=== PATIENT | female | born 1970 | race Two or more races ===

== ENCOUNTER 2018-08-01 10:17 | Inpatient (IN) | payer OTHER ==
[2018-08-01 10:49] VITALS: BMI 34.4
--- NOTE | 2018-08-01 11:50 | HP ---
CIWA Score Nausea/Vomitin-Mild Nausea/No Vomiting Muscle Tremors: 2 Anxiety: 5 Agitation: 4-Moderately Restless Paroxysmal Sweats: 2 Orientation: 0-Oriented Tacttile Disturbances: 2-Mild Itch/Numbness/Burn Auditory Disturbances: 2-Mild Harshness/Frighten Visual Disturbances: 2-Mild Sensitivity Headache: 2-Mild CIWA-Ar Total Score: 22 - Admission Criteria OASAS Guidelines: Admission for Medically Managed Detox: Requires at least one of the followin. CIWA greater than 12 2. Seizures within the past 24 hours 3. Delirium tremens within the past 24 hours 4. Hallucinations within the past 24 hours 5. Acute intervention needed for co occurring medical disorder 6. Acute intervention needed for co occurring psychiatric disorder 7. Severe withdrawal that cannot be handled at a lower level of care (continued vomiting, continued diarrhea, abnormal vital signs) requiring intravenous medication and/or fluids 8. Admission ROS S - HPI Allergies/Adverse Reactions: Allergies Allergy/AdvReac Type Severity Reaction Status Date / Time morphine Allergy Severe Difficulty Verified 08/01/18 13:25 Breathing acetaminophen [From Tylenol] Allergy Verified 08/01/18 13:25 History of Present Illness: pt here requesting detox from etoh use , reports 12 beers/day x 1 year , referred by therapist to this facility , latest use 2 days ago , current symptoms as above . PMHX : hypotension PSHX : appy , gastric bypass 2014 lmp 1 mo ago upt psych : bipolar d/o , sad on meds sHx : lives w/2 daughters ages 14 & 8 , currently w/ maternal gm Exam Limitations: Clinical Condition - Ebola screening Have you traveled outside of the country in the last 21 days: No (N) Have you had contact with anyone from an Ebola affected area: No Do you have a fever: No - Review of Systems Constitutional: See HPI EENT: reports: Other (glasses) Respiratory: reports: No Symptoms reported Cardiac: reports: No Symptoms Reported GI: reports: See HPI, Nausea, Abdominal cramping : reports: No Symptoms Reported Musculoskeletal: reports: Other (pt reports 1 month painful swelling left UE , sudden onset , denies h/o trauma , states has been using ice to decrease swelling which is considerably less and recurs intermittently every few days , reports pain 10/10 and unable to sleep or lie on affected side 2/2 pain .) Integumentary: reports: No Symptoms Reported Neuro: reports: See HPI, Headache, Tremors Endocrine: reports: No Symptoms Reported Psychiatric: reports: Orientated x3, Agitated (reports claustrophobia), Anxious , Depressed Patient History - Smoking Cessation Smoking history: Smoker current status UNK - Substances abused Alcohol Substance route: Oral Frequency: Daily Amount used: 6 cans of beer-12 ounces Age of first use: 46 Date of last use: 07/30/18 Family Disease History - Family Disease History Family Disease History: Diabetes: Grandparent, Father, Mother, Brother, Other: Son (25 , A & W ), Daughter (A & W x 3 ) Admission Physical Exam S - Vital Signs Vital Signs: Vital Signs - 24 hr 08/01/18 10:22 Temperature 98.9 F Pulse Rate 75 Respiratory 16 Rate Blood Pressure 121/72 - Physical General Appearance: Yes: Moderate Distress, Tremorous, Irritable, Sweating, Anxious HEENTM: Yes: EOMI, Hearing grossly Normal, Normocephalic Respiratory: Yes: Chest Non-Tender, Lungs Clear, Normal Breath Sounds Neck: Yes: No masses,lesions,Nodules, Trachea in good position Cardiology: Yes: Regular Rhythm, Regular Rate, S1, S2 Abdominal: Yes: Non Tender, Soft, Protuberent Extremities: Yes: Normal Range of Motion, Non-Tender, Other Neurological: Yes: Fully Oriented, Alert, Motor Strength 5/5 Integumentary: Yes: Warm, Jaundice (Left UE full PROM , + tenderness w/ deep palpation , no deformity , mild edema around distal humerus and proximal forearm , no ecchymosis) - Addiitonal Findings: report to Dr Neal @ [facility] ED , pt sent for further evaluation and tx - Diagnostic (1) Alcohol abuse Current Visit: Yes Status: Acute Screened but not Admitted - Documentation of Visit Level of Care Recommended at this Time: ER Evaluation/Care (reports to Dr Neal ) Breathalyzer - Breathalyzer Breathalyzer: 0 Urine Drug Screen - Test Device Lot number: [id number] Expiration date: 04/24/20 - Control Is test valid?: Yes - Results Drug screen NEGATIVE: Yes Inpatient Rehab Admission - Rehab Decision to Admit Inpatient rehab admission?: No
[2018-08-01] MEDS ORDERED: BISMUTH SUBSALICYLATE 524 MG/30 ML UD PO PRN (20:17)
[2018-08-01] MEDS ORDERED: MENTHOL/PHENOL 1 EACH UD MM PRN (20:17)
[2018-08-01] MEDS ORDERED: MAGNESIUM HYDROX 2400MG/30ML ORAL SUSPENSION 30 ML CUP PO PRN (20:17)
[2018-08-01] MEDS ORDERED: MAG HYDROX/AL HYDROX/SIMETH 30 ML UNIT-DOSE CUP PO PRN (20:17)
[2018-08-01] MEDS ORDERED: chlordiazePOXIDE HCL 25 MG CAPSULE PO ONE (20:17)
[2018-08-01] MEDS ORDERED: METHOCARBAMOL 500 MG TABLET PO PRN (20:17)
[2018-08-01] MEDS ORDERED: ACETAMINOPHEN 325 MG TABLET (FP) PO PRN ×2 (20:17)
[2018-08-01] MEDS ORDERED: MAGNESIUM CITRATE 300 ML BOTTLE PO PRN (20:17)
[2018-08-01] MEDS ORDERED: ONDANSETRON *ODT* 4 MG TABLET SL PRN (20:17)
[2018-08-01] MEDS ORDERED: chlordiazePOXIDE HCL 10 MG CAPSULE PO PRN (20:17)
--- NOTE | 2018-08-01 21:33 | PN ---
AY[facility] Progress Note Note: Patient returned from [facility] ED alert and oriented. Report received from Dr. Strickland @ [facility]. Patient sent to ED by [facility] for c/o pain in left elbow x past month w/ swelling of her wrist. Patient also c/o abdominal pain x 2 weeks while in ED Patient is also reporting fevers, chills, dysphagia, CP x 3 weeks, headache, and dizziness. ED Noted: "Imaging did not show acute pathology. Ultrasound showed there is no blood clot. Xrays showed there is no fracture. CT scan of your abdomen did not show acute pathology". "Low HGB noted and patient aware." Patient states is aware to f/u w/ orthopedics and PCP after discharge. Patient evaluated and admitted to detox unit for treatment of alcohol withdrawal symptoms. Vital Signs 08/01/18 21:32 Temperature 97.9 F Pulse Rate 94 H Respiratory 18 Rate Blood Pressure 137/86
[2018-08-01] MEDS: chlordiazePOXIDE HCL 25 MG CAPSULE PO SCH (21:55)
[2018-08-01] MEDS: MELATONIN 5 MG TABLETS PO PRN (21:56)
[2018-08-01] MEDS: THIAMINE HCL 100 MG TABLET (FP) PO SCH (21:57)
[2018-08-02] MEDS: chlordiazePOXIDE HCL 25 MG CAPSULE PO SCH ×2 (04:30→12:24)
--- NOTE | 2018-08-02 09:50 | PN ---
[facility] CIWA - CIWA Score Nausea/Vomitin-No Nausea/No Vomiting Muscle Tremors: 3 Anxiety: 3 Agitation: 3 Paroxysmal Sweats: 3 Orientation: 0-Oriented Tacttile Disturbances: 0-None Auditory Disturbances: 0-None Visual Disturbances: 0-None Headache: 3-Moderate CIWA-Ar Total Score: 15 [facility] Progress Note (SOAP) Subjective: headache sweats anxiety muscle spasms interrupted sleep Objective: 08/02/18 09:54 Vital Signs Temperature 98.1 F 08/02/18 09:40 Pulse Rate 83 08/02/18 09:40 Respiratory Rate 16 08/02/18 09:40 Blood Pressure 103/59 L 08/02/18 09:40 O2 Sat by Pulse Oximetry (%) labs pending [id number] ambulating no acute distress Assessment: 08/02/18 09:55 withdrawal sx Plan: continue detox increase fluids imitrex 25mg x one flexiril 10mg tid prn protonix 40mg daily
[2018-08-02] MEDS ORDERED: SUMAtriptan SUCCINATE 25 MG TABLET PO ONE (10:00)
[2018-08-02] MEDS ORDERED: PANTOPRAZOLE 40 MG TABLET (FP) PO ONE (10:00)
[2018-08-02] MEDS: PRENATAL VITAMINS W/ FOLIC ACID TABLET (FP) PO SCH (10:24)
[2018-08-02 11:05] LABS: ALBUMIN 3.2 g/dl (3.4-5.0); BILIRUBIN,TOTAL 0.2 mg/dL (0.2-1); BLOOD UREA NITROGEN 10.7 mg/dL (7-18); CREATININE 0.6 mg/dL (0.55-1.3); POTASSIUM 4.5 mmol/L (3.5-5.1); TOT PROT 6.5 g/dl (6.4-8.2)
[2018-08-02 11:55] LABS: HEMATOCRIT 24.5 % (32.4-45.2); HEMOGLOBIN 7.5 GM/dL (10.7-15.3); MCHC 30.5 g/dl (32.0-36.0); MEAN CELL VOLUME 65.1 fl (80-96); MEAN PLT VOLUME 8.6 fl (7.5-11.1); RBC 3.77 M/mm3 (3.60-5.2); RDW 20.8 % (11.6-15.6); WHITE BLOOD COUNT 6.5 K/mm3 (4.0-10.0)
[2018-08-02 11:56] LABS: EPI CELLS 15.3 /HPF (0-5/HPF); HYALINE CASTS 1 /lpf (0-8); PH,URINE 6.5 (5.0-8.0); URINE APPEARANCE CLOUDY; URINE BILIRUBIN NEGATIVE (NEGATIVE); URINE COLOR YELLOW; URINE GLUCOSE (UA) NEGATIVE (NEGATIVE); URINE KETONE NEGATIVE (NEGATIVE); URINE LEUK ESTERASE 1+ (NEGATIVE); URINE NITRITE NEGATIVE (NEGATIVE); URINE PROTEIN NEGATIVE (NEGATIVE); URINE RBC 0 /hpf (0-4); URINE UROBILINOGEN 0.2 mg/dL (0.2-1.0); URINE WBC 4 /hpf (0-5)
[2018-08-02 12:15] LABS: MCH 19.9 pg (25.7-33.7)
--- NOTE | 2018-08-02 12:38 | PN ---
[facility] Progress Note Note: Laboratory Tests 08/02/18 08/02/18 08/02/18 08:00 08:00 08:00 WBC 6.5 RBC 3.77 Hgb 7.5 L Hct 24.5 L MCV 65.1 L MCH 19.9 L MCHC 30.5 L RDW 20.8 H MPV 8.6 Sodium 142 Potassium 4.5 Chloride 112 H Carbon Dioxide 26 Anion Gap 4 L BUN 10.7 Creatinine 0.6 Est GFR (CKD-EPI)AfAm 124.92 Est GFR (CKD-EPI)NonAf 107.78 Random Glucose 72 L Calcium 9.0 Total Bilirubin 0.2 AST 15 ALT 18 Alkaline Phosphatase 90 Total Protein 6.5 Albumin 3.2 L Urine Color Urine Appearance Urine pH Ur Specific [place] Urine Protein Urine Glucose (UA) Urine Ketones Urine Blood Urine Nitrite Urine Bilirubin Urine Urobilinogen Ur Leukocyte Esterase Urine WBC (Auto) Urine RBC (Auto) Urine Casts (Auto) U Epithel Cells (Auto) Urine Bacteria (Auto) RPR Titer Nonreactive 08/02/18 09:00 WBC RBC Hgb Hct MCV MCH MCHC RDW MPV Sodium Potassium Chloride Carbon Dioxide Anion Gap BUN Creatinine Est GFR (CKD-EPI)AfAm Est GFR (CKD-EPI)NonAf Random Glucose Calcium Total Bilirubin AST ALT Alkaline Phosphatase Total Protein Albumin Urine Color Yellow Urine Appearance Cloudy Urine pH 6.5 Ur Specific [place] 1.006 L Urine Protein Negative Urine Glucose (UA) Negative Urine Ketones Negative Urine Blood Trace Urine Nitrite Negative Urine Bilirubin Negative Urine Urobilinogen 0.2 Ur Leukocyte Esterase 1+ H Urine WBC (Auto) 4 Urine RBC (Auto) 0 Urine Casts (Auto) 1 U Epithel Cells (Auto) 15.3 Urine Bacteria (Auto) 1446.0 RPR Titer labs noted low H:H; iron supplement ordered TID u/a noted with bacteria; pt denies of UTI will repeat u/a. will f/u after new results
[2018-08-02] MEDS ORDERED: CYCLOBENZAPRINE HCL 10 MG TABLET (FP) PO SCH (14:00)
--- NOTE | 2018-08-02 16:32 | CONSULT ---
[facility] Psychiatric Consult - Data Date of interview: 08/02/18 Admission source: [facility] Identifying data: First admission to [facility] for this 47 y/o female self-referred for detoxification (alcohol). Examined at [address] [place] [address]. Patient is single, a mother of three, domiciled unemployed and supported on welfare. Substance Abuse History: Discussed in this session. Recent history of alcohol abuse (age 46). Details in current [facility] report as follows : Smoking Cessation. Smoking history: patient denies smoking. Substances abused. Alcohol. Substance route: Oral. Frequency: Daily. Amount used: 6 cans of beer-12 ounces. Age of first use: 46. Date of last use: 07/30/18 Medical History: Consistent with chronic lumbar pain, history of gastric bypass , hypotension and cholecystectomy. Psychiatric History: Patient endorses a history of multiple psychiatric hospitalizations ([facility], [facility], [facility]). Diagnosed with Bipolar Disorder. Maintained on a regimen of lithium 600 mg/bid + risperdal 0.5 mg/bid + lexapro 20 mg/day + zolpidem 5 mg/hs + klonopin 0.5 mg/bid (verified via telephone contact- [phone] - with pharmacist at [address] : refills were issued for these medications on 06/24/18 + 07/09/18). Ms Hair reports psychiatric OPD care at [facility] (call made to Dr Richardson at [phone] : not available). Patient indicates that she took her medications 2-3 days ago. Denies history of suicide attempts. Physical/Sexual Abuse/Trauma History: Patient denies history of abuse. Additional Comment: Drug screen : negative. Mental Status Exam - Mental Status Exam Alert and Oriented to: Time, Place, Person Cognitive Function: Good Patient Appearance: Well Groomed Mood: Withdrawn, Anxious, Apprehensive Affect: Mood Congruent, Constricted Patient Behavior: Fatigued, Appropriate, Cooperative Speech Pattern: Clear Voice Loudness: Normal Thought Process: Goal Oriented Thought Disorder: Not Present Hallucinations: Auditory (admits to hearing faint voices early in the morning whispering that everything will be fine ; not heard during this interview) Suicidal Ideation: Denies Homicidal Ideation: Denies Insight/Judgement: Poor Sleep: Fair Appetite: Good Gait/Station: Normal Psychiatric Findings - Problem List ([place] 1, 2,3) (1) Alcohol abuse Status: Chronic (2) Substance induced mood disorder Status: Chronic (3) Bipolar disorder Status: Chronic - Initial Treatment Plan Initial Treatment Plan: Psychoeducation. Support and reassurance. AA meetings. Detoxification. Medications verified with external pharmacy. Attempt made to contact with OPD psychiatrist (with patient's verbal consent). Labs reviewed : normal electrolytes and renal function. [place] level requested. Medications resumed as : risperdal 0.5 mg po bid + lithium 300 mg po bid + lexapro 20 mg po daily. Side effects/benefits discussed. Patient is made aware of risk of abnormal involuntary movements, dyskinesias, galactorrhea, gynecomastia, sexual dysfunction, akathisia, orthostasis, renal dysfunction, hypothyroidism, suicidal ideation and alopecia. Patient is eager to get back on her medications. No report of past history of adverse events. Verbal consent given to MD. Bui.
[2018-08-02] MEDS ORDERED: risperiDONE 0.5 MG TABLET (FP) PO ONE (16:41)
[2018-08-02 16:49] LABS: PLATELET COUNT 326 K/MM3 (134-434)
[2018-08-02] MEDS: FERROUS SO4 325 MG TABLET (FP) PO SCH (17:55)
[2018-08-02 18:03] LABS: PH,URINE 6.5 (5.0-8.0); URINE APPEARANCE CLEAR; URINE BILIRUBIN NEGATIVE (NEGATIVE); URINE COLOR YELLOW; URINE GLUCOSE (UA) NEGATIVE (NEGATIVE); URINE KETONE NEGATIVE (NEGATIVE); URINE LEUK ESTERASE NEGATIVE (NEGATIVE); URINE NITRITE NEGATIVE (NEGATIVE); URINE PROTEIN NEGATIVE (NEGATIVE); URINE UROBILINOGEN 0.2 mg/dL (0.2-1.0)
[2018-08-02] MEDS: risperiDONE 0.5 MG TABLET (FP) PO SCH (22:19)
[2018-08-02] MEDS: chlordiazePOXIDE 5 MG CAPSULE PO SCH (22:19)
[2018-08-02] MEDS: THIAMINE HCL 100 MG TABLET (FP) PO SCH (22:20)
[2018-08-02] MEDS: MELATONIN 5 MG TABLETS PO PRN (22:21)
[2018-08-02] MEDS: LITHIUM CARBONATE 300 MG CAPSULE (FP) PO SCH (22:39)
[2018-08-03] MEDS: chlordiazePOXIDE 5 MG CAPSULE PO SCH ×2 (05:58→12:27)
[2018-08-03] MEDS: CYCLOBENZAPRINE HCL 10 MG TABLET (FP) PO PRN ×2 (06:01→23:52)
[2018-08-03] MEDS: FERROUS SO4 325 MG TABLET (FP) PO SCH ×3 (07:57→16:45)
[2018-08-03] MEDS: PANTOPRAZOLE 40 MG TABLET (FP) PO SCH (10:26)
[2018-08-03] MEDS: risperiDONE 0.5 MG TABLET (FP) PO SCH ×2 (10:26→23:38)
[2018-08-03] MEDS: PRENATAL VITAMINS W/ FOLIC ACID TABLET (FP) PO SCH (10:26)
[2018-08-03] MEDS: LITHIUM CARBONATE 300 MG CAPSULE (FP) PO SCH ×2 (10:27→22:28)
[2018-08-03 11:00] LABS: BASO % 0.6 % (0-2.0); EOS % 3.3 % (0-4.5); HEMATOCRIT 24.8 % (32.4-45.2); HEMOGLOBIN 7.5 GM/dL (10.7-15.3); LYMPH % 18.5 % (8-40); MCHC 30.4 g/dl (32.0-36.0); MEAN CELL VOLUME 65.4 fl (80-96); MEAN PLT VOLUME 8.8 fl (7.5-11.1); MONO % 9.8 % (3.8-10.2); NEUT % 67.8 % (42.8-82.8); RBC 3.79 M/mm3 (3.60-5.2); RDW 20.2 % (11.6-15.6); WHITE BLOOD COUNT 5.5 K/mm3 (4.0-10.0)
[2018-08-03 11:01] LABS: MCH 19.8 pg (25.7-33.7)
--- NOTE | 2018-08-03 15:40 | PN ---
S CIWA - CIWA Score Nausea/Vomitin-Mild Nausea/No Vomiting Muscle Tremors: 3 Anxiety: 3 Agitation: 3 Paroxysmal Sweats: 3 Orientation: 0-Oriented Tacttile Disturbances: 0-None Auditory Disturbances: 0-None Visual Disturbances: 0-None Headache: 0-None Present CIWA-Ar Total Score: 13 S Progress Note (SOAP) Subjective: Patient stated that she has withdrawal symptoms and she feels better with taking the medication. She refused to elaborate. Objective: 08/03/18 15:36 Last Vital Signs Temp Pulse Resp BP Pulse Ox 97.1 F L 77 18 110/68 08/03/18 14:00 08/03/18 14:00 08/03/18 14:00 08/03/18 14:00 Laboratory Tests 08/02/18 08/02/18 08/02/18 08:00 08:00 08:00 WBC 6.5 RBC 3.77 Hgb 7.5 L Hct 24.5 L MCV 65.1 L MCH 19.9 L MCHC 30.5 L RDW 20.8 H Plt Count 326 MPV 8.6 Absolute Neuts (auto) Neutrophils % Lymphocytes % Monocytes % Eosinophils % Basophils % Nucleated RBC % Manual Slide Review Slide review Platelet Comment Adq Sodium 142 Potassium 4.5 Chloride 112 H Carbon Dioxide 26 Anion Gap 4 L BUN 10.7 Creatinine 0.6 Est GFR (CKD-EPI)AfAm 124.92 Est GFR (CKD-EPI)NonAf 107.78 Random Glucose 72 L Calcium 9.0 Total Bilirubin 0.2 AST 15 ALT 18 Alkaline Phosphatase 90 Total Protein 6.5 Albumin 3.2 L Urine Color Urine Appearance Urine pH Ur Specific [place] Urine Protein Urine Glucose (UA) Urine Ketones Urine Blood Urine Nitrite Urine Bilirubin Urine Urobilinogen Ur Leukocyte Esterase Urine WBC (Auto) Urine RBC (Auto) Urine Casts (Auto) U Epithel Cells (Auto) Urine Bacteria (Auto) [place] RPR Titer Nonreactive 08/02/18 08/02/18 08/02/18 08:00 09:00 14:49 WBC RBC Hgb Hct MCV MCH MCHC RDW Plt Count MPV Absolute Neuts (auto) Neutrophils % Lymphocytes % Monocytes % Eosinophils % Basophils % Nucleated RBC % Manual Slide Review Platelet Comment Sodium Potassium Chloride Carbon Dioxide Anion Gap BUN Creatinine Est GFR (CKD-EPI)AfAm Est GFR (CKD-EPI)NonAf Random Glucose Calcium Total Bilirubin AST ALT Alkaline Phosphatase Total Protein Albumin Urine Color Yellow Yellow Urine Appearance Cloudy Clear Urine pH 6.5 6.5 Ur Specific [place] 1.006 L 1.005 L Urine Protein Negative Negative Urine Glucose (UA) Negative Negative Urine Ketones Negative Negative Urine Blood Trace Negative Urine Nitrite Negative Negative Urine Bilirubin Negative Negative Urine Urobilinogen 0.2 0.2 Ur Leukocyte Esterase 1+ H Negative Urine WBC (Auto) 4 Urine RBC (Auto) 0 Urine Casts (Auto) 1 U Epithel Cells (Auto) 15.3 Urine Bacteria (Auto) 1446.0 [place] 0.6 RPR Titer 08/03/18 07:30 WBC 5.5 RBC 3.79 Hgb 7.5 L Hct 24.8 L MCV 65.4 L MCH 19.8 L MCHC 30.4 L RDW 20.2 H Plt Count MPV 8.8 Absolute Neuts (auto) 3.7 Neutrophils % 67.8 Lymphocytes % 18.5 Monocytes % 9.8 Eosinophils % 3.3 Basophils % 0.6 Nucleated RBC % 0 Manual Slide Review Platelet Comment Sodium Potassium Chloride Carbon Dioxide Anion Gap BUN Creatinine Est GFR (CKD-EPI)AfAm Est GFR (CKD-EPI)NonAf Random Glucose Calcium Total Bilirubin AST ALT Alkaline Phosphatase Total Protein Albumin Urine Color Urine Appearance Urine pH Ur Specific [place] Urine Protein Urine Glucose (UA) Urine Ketones Urine Blood Urine Nitrite Urine Bilirubin Urine Urobilinogen Ur Leukocyte Esterase Urine WBC (Auto) Urine RBC (Auto) Urine Casts (Auto) U Epithel Cells (Auto) Urine Bacteria (Auto) [place] RPR Titer Labs reviewed: microcytic anemia noted (on iron supplement) Assessment: 08/03/18 15:40 Withdrawal symptoms Microcytic anemia noted Plan: Continue detox Encouraged PO water hydration Microcytic anemia: continue FESO4, add colace 100mg PO bid to prevent constipation, follow up with PCP for monitoring
[2018-08-03] MEDS: IBUPROFEN 400 MG TABLET (FP) PO PRN (16:43)
[2018-08-03 18:09] LABS: PLATELET COUNT 550 K/MM3 (134-434)
[2018-08-03] MEDS ORDERED: chlordiazePOXIDE HCL 10 MG CAPSULE PO PRN (21:00)
[2018-08-03] MEDS: chlordiazePOXIDE HCL 10 MG CAPSULE PO SCH (22:28)
[2018-08-03] MEDS: DOCUSATE SODIUM 100 MG CAPSULE (FP) PO SCH (22:28)
[2018-08-03] MEDS: MELATONIN 5 MG TABLETS PO PRN (22:29)
[2018-08-03] MEDS: THIAMINE HCL 100 MG TABLET (FP) PO SCH (22:29)
[2018-08-04] MEDS: chlordiazePOXIDE HCL 10 MG CAPSULE PO SCH (05:32)
[2018-08-04] MEDS: IBUPROFEN 400 MG TABLET (FP) PO PRN (05:43)
[2018-08-04] MEDS: FERROUS SO4 325 MG TABLET (FP) PO SCH (07:00)
[2018-08-04 09:21] VITALS: BP 111/61; PULSE 101; TEMP 97.7
[2018-08-04] MEDS ORDERED: HYDROCORTISONE 1% TOPICAL CREAM 30 GM TUBE TP ONE (09:35)
[2018-08-04] MEDS: PANTOPRAZOLE 40 MG TABLET (FP) PO SCH (09:46)
[2018-08-04] MEDS: PRENATAL VITAMINS W/ FOLIC ACID TABLET (FP) PO SCH (09:46)
[2018-08-04] MEDS: DOCUSATE SODIUM 100 MG CAPSULE (FP) PO SCH (09:46)
--- NOTE | 2018-08-04 09:52 | DS ---
[facility] Detox Discharge Summary Admission Date: 08/01/18 Discharge Date: 08/04/18 - History Present History: Alcohol Dependence - Physical Exam Results Vital Signs: Vital Signs Temperature 97.7 F 08/04/18 09:19 Pulse Rate 101 H 08/04/18 09:19 Respiratory Rate 20 08/04/18 09:19 Blood Pressure 111/61 08/04/18 09:19 O2 Sat by Pulse Oximetry (%) - Treatment Hospital Course: Detox Protocol Followed, Detoxed Safely, Responded well, Discharged Condition Good, Rehab Referral Accepted - Medication Discharge Medications: Ambulatory Orders Ibuprofen [Motrin -] 600 mg PO QID PRN #90 tablet 08/01/18 [place] Carbonate [Eskalith -] 600 mg PO BID 08/01/18 Risperidone [Risperdal -] 0.5 mg PO BID 08/01/18 - Diagnosis (1) Alcohol abuse Current Visit: Yes Status: Chronic (2) Bipolar disorder Current Visit: Yes Status: Chronic (3) Substance induced mood disorder Current Visit: Yes Status: Chronic (4) Abdominal pain Current Visit: No Status: Acute Qualifiers: Abdominal location: generalized Qualified Code(s): R10.84 - Generalized abdominal pain (5) Arm pain, left Current Visit: No Status: Acute - AMA Did Patient Leave Against Medical Advice: No (pt declined aftercare; going to her PCP/psych)
[2018-08-04] MEDS: risperiDONE 0.5 MG TABLET (FP) PO SCH (10:19)
[2018-08-04] MEDS: LITHIUM CARBONATE 300 MG CAPSULE (FP) PO SCH (10:19)
== END 2018-08-04 10:34 | disposition home or self-care (01) | DRG 775 ==
LOC: YASAS 10:17 → Y6N 21:21
PROVIDERS: ADMIT Surgery; ATTEND Surgery
PROC: HZ2ZZZZ Detoxification Services for Substance Abuse Treatment (ICD-10-PCS; principal; 2018-08-01)
DX: F10.230 Alcohol dependence with withdrawal, uncomplicated (principal); F19.24 Other psychoactive substance dependence with psychoactive substance-induced mood disorder; F31.9 Bipolar disorder, unspecified; D50.9 Iron deficiency anemia, unspecified; R10.84 Generalized abdominal pain; M79.602 Pain in left arm; M25.522 Pain in left elbow; Z88.8 Allergy status to other drugs, medicaments and biological substances
CPT/HCPCS: 36415; 71046-TC-FY; 73070-TC-LT-FY; 73090-TC-LT-FY; 73110-TC-LT-FY; 73130-TC-LT-FY; 74177-TC; 80053; 80178; 80307; 81003; 81025; 84484; 84702; 84703; 85025; 85027; 85610; 85730; 86593; 93005; 93010; 93971; 96361; 96374; 99283-25; J7030

== ENCOUNTER 2018-08-01 13:02 | Emergency (ER) | payer OTHER ==
[2018-08-01 13:15] VITALS: TEMP 98; BMI 34.5
--- NOTE | 2018-08-01 13:28 | PDOC ---
History of Present Illness - General Chief Complaint: Pain Stated Complaint: LT WEAKNESS Time Seen by Provider: 08/01/18 13:22 - History of Present Illness Initial Comments: 47F with PMH of gastric bypass 2013, cholecystectomy 2015, ETOH abuse (last had 12 beers on Sat), bipolar disorder, hypotension, sent by [facility] for evaluation of LUE pain. Patient has had pain in her left elbow for the past month. She has also noticed swelling on her wrist. The pain is rate 8/10. Motrin at home has not helped. She describes tingling extending from her left elbow to the fingers. No hemoptysis, no recent surgical history, no recent immobilization, no hormone use, no history of DVT or PE. Denies shortness of breath. Patient also complains of abdominal pain x 2 weeks, described as "pressure." Last bowel movement was five days ago. Patient has passed flatulence. She notices that certain foods like chicken and rice will make her pain worse and she has eaten such foods recently. Endorsing nausea and two or three episodes of watery vomiting yesterday. Patient has felt this way before, in 2014 about a year after the gastric bypass surgery. She reports being medically evaluated and imaged with no acute pathology. Patient is also reporting fevers, chills, dysphagia, CP x 3 weeks, headache, and dizziness. PCP: Garry Hernandez (unknown spelling) Past History - Past Medical History Allergies/Adverse Reactions: Allergies Allergy/AdvReac Type Severity Reaction Status Date / Time morphine Allergy Severe Difficulty Verified 08/01/18 13:25 Breathing acetaminophen [From Tylenol] Allergy Verified 08/01/18 13:25 Home Medications: Ambulatory Orders Ibuprofen [Motrin -] 600 mg PO QID PRN #90 tablet 08/01/18 [place] Carbonate [Eskalith -] 600 mg PO BID 08/01/18 Risperidone [Risperdal -] 0.5 mg PO BID 08/01/18 - Suicide/Smoking/Psychosocial Hx Smoking History: Unknown if ever smoked Hx Alcohol Use: Yes Review of Systems - Review of Systems Comments:: Constitutional: +fever, +chills HEENT: no throat pain, +dysphagia Cardiovascular: +chest pain, no palpitations Respiratory: no cough, no shortness of breath Gastrointestinal: +abdominal pain, +nausea Genitourinary: no dysuria, no frequency Musculoskeletal: +L. arm pain, no R. arm pain Skin: no rash, no itching Neurologic: +headache, +dizziness *Physical Exam - Vital Signs Last Vital Signs Temp Pulse Resp BP Pulse Ox 98 F 64 18 110/70 100 08/01/18 13:13 08/01/18 13:13 08/01/18 13:13 08/01/18 13:13 08/01/18 13:13 - Physical Exam Comments: General: Awake, alert, and fully oriented, in no acute distress Head: No signs of trauma Eyes: EOMI, sclera anicteric ENT: Moist mucus membranes Neck: Normal ROM, supple Lungs: Lungs clear, Normal breath sounds Cardio: Regular rhythm, S1 and S2 present Abdomen: Diffuse tenderness to palpation. Soft, nondistended. No guarding, no rebound, no masses. No CVA tenderness. Extremities: Normal range of motion, Distal pulses present RUE: no abnormalities LUE: Tenderness to palpation of olecrenon process, mild soft tissue swelling overlying wrist, normal abduction/adduction of shoulder, no rashes or lesions, strength less than that of right as exam limited by elbow pain SKIN: Warm, Dry, normal turgor Neurologic: Cranial nerves II through XII grossly intact. Normal speech ED Treatment Course - LABORATORY CBC & Chemistry Diagram: 08/01/18 14:05 08/01/18 13:59 Medical Decision Making - Medical Decision Making 47F with PMH of gastric bypass 2013, cholecystectomy 2015, ETOH abuse (last had 12 beers on Sat), bipolar disorder, hypotension, sent by [facility] for evaluation of LUE pain. DDX including but not limited to DVT, fracture, MSK pain, bursitis DDX including but not bowel obstruction, UTI, hepatitis, pancreatitis, nephrolithiasis, gastric bypass complication Labs, EKG, CXR, Radiographs of LUE, CTAP w/IV contrast Zofran, 1L NS Patient has allergies to morphine and tylenol. Asked what she uses for pain. Motrin ordered. 08/01/18 13:28 CT reports patient is refusing CT as she had one a month ago at another hospital that was normal. I explained that since she still has abdominal tenderness, I want to know if there is any acute pathology. Patient consented to CT. 08/01/18 16:05 CBC WBC 6.4 K/mm3 (4.0-10.0) 08/01/18 14:05 RBC 4.09 M/mm3 (3.60-5.2) 08/01/18 14:05 Hgb 8.0 GM/dL (10.7-15.3) L 08/01/18 14:05 Hct 27.2 % (32.4-45.2) L 08/01/18 14:05 MCV 66.6 fl (80-96) L 08/01/18 14:05 MCH 19.7 pg (25.7-33.7) L 08/01/18 14:05 MCHC 29.6 g/dl (32.0-36.0) L 08/01/18 14:05 RDW 20.9 % (11.6-15.6) H 08/01/18 14:05 Plt Count 329 K/MM3 (134-434) 08/01/18 14:05 MPV 8.4 fl (7.5-11.1) 08/01/18 14:05 Absolute Neuts (auto) 4.2 K/mm3 (1.5-8.0) 08/01/18 14:05 Neutrophils % 65.1 % (42.8-82.8) 08/01/18 14:05 Lymphocytes % 21.9 % (8-40) 08/01/18 14:05 Monocytes % 9.0 % (3.8-10.2) 08/01/18 14:05 Eosinophils % 3.4 % (0-4.5) 08/01/18 14:05 Basophils % 0.6 % (0-2.0) 08/01/18 14:05 Nucleated RBC % 0 % (0-0) 08/01/18 14:05 Hypochromia 2+ 08/01/18 14:05 Platelet Estimate Adequate 08/01/18 14:05 Anisocytosis 2+ 08/01/18 14:05 Microcytosis 2+ 08/01/18 14:05 No leukocytosis Anemia noted Patient states she has a history of anemia, likely due to to her heavy menstrual periods. Has been transfused twice before, most recently one month ago at another hospital. She has an appointment to follow up with her primary care physician on Saturday and her inpatient services director on Saturday. Denies easy bleeding or bruising, hematemesis, hematochezia, or melena. CMP Sodium 141 mmol/L (136-145) 08/01/18 13:59 Potassium 4.3 mmol/L (3.5-5.1) 08/01/18 13:59 Chloride 110 mmol/L (98-107) H 08/01/18 13:59 Carbon Dioxide 26 mmol/L (21-32) 08/01/18 13:59 Anion Gap 5 MMOL/L (8-16) L 08/01/18 13:59 BUN 10.3 mg/dL (7-18) 08/01/18 13:59 Creatinine 0.6 mg/dL (0.55-1.3) 08/01/18 13:59 Est GFR (CKD-EPI)AfAm 124.92 08/01/18 13:59 Est GFR (CKD-EPI)NonAf 107.78 08/01/18 13:59 Random Glucose 74 mg/dL (74-106) 08/01/18 13:59 Calcium 8.9 mg/dL (8.5-10.1) 08/01/18 13:59 Total Bilirubin 0.2 mg/dL (0.2-1) 08/01/18 13:59 AST 26 U/L (15-37) 08/01/18 13:59 ALT 22 U/L (13-61) 08/01/18 13:59 Alkaline Phosphatase 90 U/L (45-117) 08/01/18 13:59 Troponin I < 0.02 ng/ml (0.00-0.05) 08/01/18 13:59 Total Protein 6.8 g/dl (6.4-8.2) 08/01/18 13:59 Albumin 3.3 g/dl (3.4-5.0) L 08/01/18 13:59 Serum , Qual Negative 08/01/18 14:25 Electrolytes WNL Tpn undetectable UA negative for infection CTAP: "Multiplanar imaging was performed following the intravenous administration of nonionic contrast. As requested enteric contrast was not administered. No prior imaging studies are available at this facility for direct comparison. There is no evidence of pneumoperitoneum, abscess, free intraperitoneal fluid or bowel obstruction. Several mildly dilated right lower abdominal/pelvic small bowel loops are seen containing fluid possibly representing a mild ileus versus incidental mild transient dilatation. Status post gastric surgery. Status post cholecystectomy. No definite biliary tract dilatation is noted. The liver, spleen, pancreas, adrenal glands and kidneys demonstrate no discrete abnormality. There is no aortic aneurysm. No obvious lymphadenopathy is noted. The partially visualized appendix demonstrates no discrete abnormality. No indirect CT signs of acute appendicitis are noted. There is no evidence of acute diverticulitis or obvious acute colitis. No gross noncontrast small bowel pathology is seen. Possible 2.4 cm right posterior adnexal cyst. Evaluation in this region is limited due to contiguous and opacified bowel loops. The uterus appears mildly bulbous which could be on the basis of leiomyomas or adenomyosis. If clinically indicated correlate with sonography. Laxity is seen along the midline anterior abdominal wall. Impression : No definite CT findings of acute pathology is seen as discussed above" Duplex LUE: "There is no evidence of deep venous thrombosis. The internal jugular, subclavian, axillary, brachial, radial and ulnar veins are widely patent with normal venous flow documented throughout these vessels. The basilic and proximal cephalic veins are also patent. IMPRESSION: No evidence of deep venous thrombosis. " L. Arm radiographs without acute pathology, my impression Pending radiology report on Xrays 08/01/18 18:03 CXR: "2 views of the chest reveal a normal mediastinum, normal aorta normal shai. The lungs are well- expanded. There are some ill-defined densities in the left mid and upper lung field. These could represent granulomatous changes though other pathology must be considered. The angles are sharp. The bones and soft tissues are intact. Impression: No acute chest pathology. Probable granulomatous changes left lung. Follow-up recommended. " 08/01/18 19:11 L. wrist/hand: "3 views of the left hand and wrist have been submitted. There is no sign of a gross fracture, subluxation or bone destruction. Blastic or lytic changes are not seen. There is no significant swelling and no sign of a foreign body or soft tissue air. If symptoms persist, further imaging may be of help" L. forearm: "2 views of the left forearm reveal no sign of fracture or subluxation and no sign of blastic or lytic changes. Swelling, foreign body or soft tissue air is not seen. If symptoms persist, further imaging may be of help." L. elbow: "3 views of the left elbow reveal no sign of fracture or subluxation and no sign of blastic or lytic changes. If symptoms persist, further imaging may be of help. " Radiographs negative for fracture, per radiology Confirmed with Sherrie Mccurdy at [facility] that bed for patient is available Informed patient she needs to follow up with her primary are physician regarding anemia and abnormal chest xray. Patient amenable. Plan to discharge with transportation to [facility] 08/01/18 19:34 Patient requested outpatient prescription for motrin. Order placed. 08/01/18 20:10 *DC/Admit/Observation/Transfer Diagnosis at time of Disposition: Arm pain, left Abdominal pain Qualifiers: Abdominal location: generalized Qualified Code(s): R10.84 - Generalized abdominal pain - Discharge Dispostion Disposition: HOME - Prescriptions Prescriptions: Ibuprofen [Motrin -] 600 mg PO QID PRN #90 tablet PRN Reason: Pain - Referrals Referrals: Sylvain Wilkes MD [Staff Physician] - - Patient Instructions Additional Instructions: You came into the ED for arm pain and abdominal pain. Imaging did not show acute pathology. Ultrasound showed there is no blood clot. Xrays showed there is no fracture. CT scan of your abdomen did not show acute pathology. We called [facility] and they have a bed available for you. Follow up with your primary care physician at your already scheduled appointment on Saturday to discuss this ED visit and for further evaluation of your symptoms. Your care is not complete until you do so. 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 Your hemoglobin level was low (8) and should be rechecked. Your Xray showed some ill-defined densities in the left mid an dupper lung field. Follow up with your primary care doctor regarding this as well. We have referred you to an orthopedist. Call and make an appointment if your pain does not improve by the end of next week. You can take [id number] motrin for pain. Follow the instructions on the medication bottle. Immediate medical attention is required if you experience: high fevers, chills , persistent vomiting, stop urinating, or any new or concerning symptoms. If you think you have an emergency, call for medical help right away. - Post Discharge Activity
[2018-08-01] MEDS ORDERED: SODIUM CHLORIDE 1,000 ML IV STA (14:01)
[2018-08-01] MEDS ORDERED: ONDANSETRON 4 MG/2 ML VIAL IVPUSH ONE (14:06)
--- NOTE | 2018-08-01 14:11 | PDOC ---
Attending Attestation - Resident Resident Name: Gricelda Strickland - ED Attending Attestation I have performed the following: I have examined & evaluated the patient, The case was reviewed & discussed with the resident, I agree w/resident's findings & plan, Exceptions are as noted - HPI HPI: 47 yo F hx EtOH abuse sent by [facility] [email or web address] for LUE swelling and pain. Patient states she has had it for 1 month, no known injury. No history of blood clots. Also states she has been having epigastric abd pain that is worse with meals. - Physicial Exam PE: GENERAL: Awake, alert, and fully oriented, in no acute distress HEAD: No signs of trauma EYES: PERRLA, EOMI, sclera anicteric, conjunctiva clear ENT: Auricles normal inspection, hearing grossly normal, nares patent, oropharynx clear without exudates. Moist mucosa NECK: Normal ROM, supple, no lymphadenopathy, JVD, or masses LUNGS: Breath sounds equal, clear to auscultation bilaterally. No wheezes, and no crackles HEART: Regular rate and rhythm, normal S1 and S2, no murmurs, rubs or gallops ABDOMEN: Soft, +epigastric tenderness, normoactive bowel sounds. No guarding, no rebound. No masses EXTREMITIES: Normal range of motion, no edema. No clubbing or cyanosis. No cords, erythema, or tenderness NEUROLOGICAL: Cranial nerves II through XII grossly intact. Normal speech, normal gait. Motor and sensation intact SKIN: Warm, Dry, normal turgor, no rashes or lesions noted. - Medical Decision Making In light of history of EtOH abuse, will obtain XR to make sure she did not have trauma she does not recall. Will obtain doppler as well to r/o DVT. Will work up abd pain as she was exquisitely tender on initial evaluation.
[2018-08-01] MEDS ORDERED: ONDANSETRON 4 MG/2 ML VIAL ONE (14:16)
[2018-08-01] MEDS ORDERED: IBUPROFEN 400 MG TABLET (FP) PO ONE ×2 (14:21→14:28)
[2018-08-01 14:36] LABS: BASO % 0.6 % (0-2.0); EOS % 3.4 % (0-4.5); HEMATOCRIT 27.2 % (32.4-45.2); LYMPH % 21.9 % (8-40); MCH 19.7 pg (25.7-33.7); MCHC 29.6 g/dl (32.0-36.0); MEAN CELL VOLUME 66.6 fl (80-96); MEAN PLT VOLUME 8.4 fl (7.5-11.1); NEUT % 65.1 % (42.8-82.8); PLATELET COUNT 329 K/MM3 (134-434); RBC 4.09 M/mm3 (3.60-5.2); RDW 20.9 % (11.6-15.6); WHITE BLOOD COUNT 6.4 K/mm3 (4.0-10.0)
[2018-08-01 14:44] LABS: INR 0.96 (0.83-1.09); PROTHROMBIN TIME (PATIENT) 11.3 SEC (9.7-13.0)
[2018-08-01 14:46] LABS: ACTIVATED PTT 31.9 SECONDS (25.2-36.5)
[2018-08-01 15:06] LABS: EPI CELLS 7.4 /HPF (0-5/HPF); HYALINE CASTS 1 /lpf (0-8); URINE APPEARANCE CLEAR; URINE BACTERIA 235.8 /hpf (NEGATIVE); URINE BILIRUBIN NEGATIVE (NEGATIVE); URINE COLOR YELLOW; URINE GLUCOSE (UA) NEGATIVE (NEGATIVE); URINE KETONE NEGATIVE (NEGATIVE); URINE LEUK ESTERASE TRACE (NEGATIVE); URINE NITRITE NEGATIVE (NEGATIVE); URINE PROTEIN NEGATIVE (NEGATIVE); URINE RBC 1 /hpf (0-4); URINE UROBILINOGEN 0.2 mg/dL (0.2-1.0); URINE WBC 6 /hpf (0-5)
[2018-08-01 15:07] LABS: ANISOCYTOSIS 2+; PLATELET ESTIMATE ADEQUATE
[2018-08-01 15:12] LABS: ALBUMIN 3.3 g/dl (3.4-5.0); ALK PHOS 90 U/L (45-117); ANION GAP 5 MMOL/L (8-16); BILIRUBIN,TOTAL 0.2 mg/dL (0.2-1); BLOOD UREA NITROGEN 10.3 mg/dL (7-18); CALCIUM 8.9 mg/dL (8.5-10.1); CHLORIDE 110 mmol/L (98-107); CO2 26 mmol/L (21-32); CREATININE 0.6 mg/dL (0.55-1.3); GLUCOSE,RANDOM 74 mg/dL (74-106); POTASSIUM 4.3 mmol/L (3.5-5.1); SGOT/AST 26 U/L (15-37); SGPT/ALT 22 U/L (13-61); SODIUM 141 mmol/L (136-145); TOT PROT 6.8 g/dl (6.4-8.2)
[2018-08-01 15:18] LABS: COCAINE, UR NEGATIVE ng/ml (CUTOFF=300); METHADONE, UR NEGATIVE ng/ml (CUTOFF=300); OPIATES, URI NEGATIVE ng/ml (CUTOFF=300); PHENCYCLIDINE,URINE NEGATIVE ng/ml (CUTOFF=25); URINE AMPHETAMINES NEGATIVE ng/ml (CUTOFF=500); URINE BARBITURATES NEGATIVE ng/ml (CUTOFF=200); URINE BENZODIAZEPINES NEGATIVE ng/ml (CUTOFF=200)
[2018-08-01 17:29] VITALS: BP 135/77; PULSE 79
--- NOTE | 2018-08-02 08:46 | EKG ---
Test Reason : Blood Pressure : / mmHG Vent. Rate : 063 BPM Atrial Rate : 063 BPM P-R Int : 162 ms QRS Dur : 084 ms QT Int : 422 ms P-R-T Axes : 065 016 029 degrees QTc Int : 431 ms NORMAL SINUS RHYTHM NORMAL ECG NO PREVIOUS ECGS AVAILABLE Confirmed by LEIDY HERNANDEZ, ROBERT ([id number]) on 08/02/2018 8:46:35 AM Referred By: Confirmed By:ROBERT FORBES MD
== END 2018-08-01 19:55 | disposition home or self-care (01) ==
LOC: JER 13:02
PROC: 3E033GC Introduction of Other Therapeutic Substance into Peripheral Vein, Percutaneous Approach (ICD-10-PCS; principal; 2018-08-01)
PROC: 3E0337Z Introduction of Electrolytic and Water Balance Substance into Peripheral Vein, Percutaneous Approach (ICD-10-PCS; 2018-08-01)
DX: R10.84 Generalized abdominal pain (principal); M79.602 Pain in left arm; F10.10 Alcohol abuse, uncomplicated; F31.9 Bipolar disorder, unspecified; E03.9 Hypothyroidism, unspecified
CPT/HCPCS: 36415; 71046-TC-FY; 73070-TC-LT-FY; 73090-TC-LT-FY; 73110-TC-LT-FY; 73130-TC-LT-FY; 74177-TC; 80053; 80307; 81003; 84484; 84702; 84703; 85025; 85610; 85730; 93005; 93010; 93971; 96361; 96374; 99283-25; J7030